=== PATIENT | female | born 1960 | race Caucasian/White ===

== ENCOUNTER 2022-09-23 14:48 | Emergency (ER) | payer MEDICARE, MEDICAID ==
[~2022-09-23] VITALS: Ht 163.8 cm; Wt 81.8 kg
[~2022-09-23 14:48] MED LIST: ALBU17AE26 PO; AMLO5TAB16 PO; APIX2.5T PO; ATOR20TA66 PO; DOCU-148 PO; DULO20CA18 PO; DULO60CA65 PO; FAMO40TA7 PO; HYDR-3965 PO; LEVO50TA8 PO; LOSA100T57 PO; NAPR-996 PO; POTA-207 PO; THEO300T46 PO; THEO400T PO; TRAM50TA2 PO
[2022-09-23] MEDS ORDERED: morphine 4 MG/ML inj SYRINge IM ONE (16:45)
[2022-09-23] MEDS ORDERED: oxyCODONE/APAP 10/325mg tablet PO ONE (16:45)
--- NOTE | 2022-09-23 23:00 | NUR ---
Pt to be discharged after speaking with case management about support at home and physical therapy. Pt lives alone and is having difficulty managing day to day activities. Pt to sleep here tonight and speak with case management in am for plan then discharge
--- NOTE | 2022-09-24 03:00 | NUR ---
Pt moved to hallway bed, report given
[2022-09-24 07:34] VITALS: BP 131/77
[2022-09-24] MEDS ORDERED: HYDROcodone/acetaminophen 5mg/325mg tablet PO ONE (07:40)
--- NOTE | 2022-09-24 08:37 | NUR ---
PT UP TO BATHROOM WITH WHEELCHAIR AND ONE PERSON STAND BY ASSIST. PT REPORTS AN INCREASE IN PAIN FROM A 02/08 TO 08/11. PT RESTING IN BED IN HALLWAY WITH NO DISTRESS OBSERVED.
--- NOTE | 2022-09-24 09:36 | NUR ---
SPOKE WITH CARI, GASTROENTEROLOGY NURSE. PER CARI SHE WILL FOLLOW UP WITH A PHOTOGRAPHS CURATOR TO FIND OUT IF INPATIENT REHABILITATION WILL BE AN OPTION. PER CARI PT WAS SENT HOME WITH HOME HEALTH FOR PT.
--- NOTE | 2022-09-24 12:41 | NUR ---
SPOKE WITH SISTER, RICARDA, PER PT IT IS OK TO GIVE HER AN UPDATE.
--- NOTE | 2022-09-24 12:55 | NUR ---
REPORT GIVEN TO RN ON CONTRERAS SIDE AT [facility].
--- NOTE | 2022-09-24 13:22 | NUR ---
PT GIVEN EXTRA FOOD TRAY.
== END 2022-09-24 14:11 | disposition home or self-care (01) ==
LOC: ER 14:49
DX: G89.18 Other acute postprocedural pain (principal); Z20.822 Contact with and (suspected) exposure to COVID-19; M25.561 Pain in right knee; J45.909 Unspecified asthma, uncomplicated; I50.9 Heart failure, unspecified
CPT/HCPCS: 87811; 96372; 99284; J2270

== ENCOUNTER 2022-11-09 21:18 | Inpatient (IN) | payer MEDICARE, MEDICAID ==
[~2022-11-09] VITALS: Ht 162.6 cm; Wt 79.5 kg
[~2022-11-09 21:18] MED LIST changes: -HYDR-3965 PO
[2022-11-09] MEDS ORDERED: nitroGLYCERIN-Tridil 50MG/D5W 250 ML IV PRN (21:25)
[2022-11-09] MEDS ORDERED: aspirin 81mg tab.chew PO ONE (21:25)
[2022-11-09] MEDS ORDERED: heparin 25,000 UNIT/250ml bag 250 ML IV PRN (21:25)
[2022-11-09] MEDS ORDERED: normal saline 1000ML IV soln IVB ONE (21:30)
--- NOTE | 2022-11-09 21:35 | NUR ---
pt was given 824mg of ASA and Zofran 4 mg prior to arrivail
[2022-11-09 21:37] LABS: BASOPHILS # (AUTO) 0.1 X10'3 (0-0.2); EOSINOPHILS # (AUTO) 0.2 X10'3 (0-0.9); HEMOGLOBIN 12.7 g/dl (12.0-16.0); NEUTROPHILS # (AUTO) 5.5 X10'3 (1.8-7.7); RED CELL DISTRIBUTION WIDTH 15.3 % (11.5-14.5)
[2022-11-09 21:38] LABS: BASOPHILS % (AUTO) 1.3 % (0-1); EOSINOPHILS % (AUTO) 2.2 % (0-6); LYMPHOCYTES # (AUTO) 2.8 X10'3 (1.1-4.8); LYMPHOCYTES % (AUTO) 30.4 % (21-51); MEAN CORPUSCULAR HEMOGLOBIN 30.4 PG (27.0-31.0); MEAN CORPUSCULAR HGB CONC 33.6 g/dL (33.0-36.5); MEAN CORPUSCULAR VOLUME 90.7 FL (78-98); MEAN PLATELET VOLUME 8.3 FL (7.4-10.4); MONOCYTES # (AUTO) 0.7 X10'3 (0-0.9); MONOCYTES % (AUTO) 7.3 % (2-12); NEUTROPHILS % (AUTO) 58.8 % (42-75); PLATELET COUNT 287 X10'3 (140-440); RED BLOOD COUNT 4.19 X10'6 (4.20-5.60); WHITE BLOOD COUNT 9.3 X10'3 (4.5-11.0)
[2022-11-09] MEDS ORDERED: fentaNYL/PF 50MCG/1 ML 2ML syringe ONE (21:39)
[2022-11-09] MEDS ORDERED: heparin 1,000unit/ml 10ml vial 10 ML ONE (21:39)
[2022-11-09] MEDS ORDERED: iohexol 350MG/ML 100ml bottle IV ONE (21:39)
[2022-11-09] MEDS ORDERED: midazolam 1 mg/ML 2ml injection ONE (21:39)
[2022-11-09] MEDS ORDERED: LIDOcaine 1% 30ml preserv. free vial ONE (21:39)
--- NOTE | 2022-11-09 21:43 | NUR ---
HEPRIN GTT STARTED AT 1000 UNITS PER HR AND 4000UNIT GIVEN, CHECK AND STARTED WITH DAVIS ROSEN VIA RIGHT AC 18G.
[2022-11-09] MEDS ORDERED: heparin 10,000 units/1 ML INJ IV ONE (21:45)
--- NOTE | 2022-11-09 21:45 | NUR ---
PT GROINS SHAVED
[2022-11-09 21:50] LABS: APTT 26 SECONDS (22-32)
[2022-11-09 22:03] LABS: ALANINE AMINOTRANSFERASE 15 U/L (12-78); ALBUMIN 3.5 G/DL (3.4-5.0); ALKALINE PHOSPHATASE 113 IU/L (46-116); ANION GAP 13 (8-16); ASPARTATE AMINO TRANSFERASE 24 U/L (10-37); BILIRUBIN,TOTAL 0.4 MG/DL (0.1-1.0); BLOOD UREA NITROGEN 19 MG/DL (7-18); BUN/CREATININE RATIO 13.1 (6.6-38.0); CALCIUM 9.7 MG/DL (8.5-10.1); CHLORIDE 101 MMOL/L (99-107); CREATININE 1.45 MG/DL (0.40-0.90); GLUCOSE 153 MG/DL (70-104); MAGNESIUM 1.9 MG/DL (1.5-2.4); SODIUM 137 MMOL/L (135-145); TOTAL CARBON DIOXIDE 22.9 MMOL/L (24-32); eGFR 36 ML/MIN
[2022-11-09 22:09] LABS: POTASSIUM 2.3 MMOL/L (3.5-5.1)
[2022-11-09] MEDS ORDERED: potassium Cl 20mEq/100mL bag 100 ML IV ONE (22:12)
--- NOTE | 2022-11-09 22:13 | NUR ---
2152 PT TRANSPORTED TO MEDICAL OFFICE ASSISTANT VIA BED ON MONITOR WITH PAD ATTACHED.
[2022-11-09] MEDS ORDERED: heparin 10,000 units/1 ML INJ IV PRN (22:15)
[2022-11-09] MEDS ORDERED: potassium Cl 20 mEq SR tablet PO ONE (22:15)
[2022-11-09] MEDS ORDERED: ticagrelor 90mg tablet ONE (22:36)
[2022-11-09] MEDS ORDERED: potassium Cl 20 mEq SR tablet PO PRN (22:50)
[2022-11-09] MEDS ORDERED: magnesium Cl slow-release 64mg tablet PO PRN (22:50)
[2022-11-09] MEDS ORDERED: potassium Cl 40MEQ/1/2NS 520ml 520 ML IV PRN (22:50)
[2022-11-09] MEDS ORDERED: magnesium 4gm in 100ml NS 100 ML IV PRN (22:50)
--- NOTE | 2022-11-09 23:00 | NUR ---
Patient in room PCU 3013. I have received report from EMIGDIO CANNON [employer] and had the opportunity to ask questions and assume patient care.
[2022-11-09 23:50] VITALS: BP 113/56
[2022-11-09] MEDS ORDERED: acetaminophen 325mg tablet PO PRN (23:50)
[2022-11-09] MEDS ORDERED: ondansetron/PF 4mg/2ml inj IV PRN (23:50)
[2022-11-09] MEDS ORDERED: proCHLORperazine 10 MG/2 ml inj IV PRN (23:50)
[2022-11-09] MEDS ORDERED: albuterol 2.5 MG/3 ML nebule NEB PRN (23:55)
[2022-11-10] VITALS (11 sets, daily range): BP systolic 94–132; BP diastolic 44–75
[2022-11-10] MEDS: traMADol 50MG tablet PO PRN ×3 (00:33→19:43)
[2022-11-10] MEDS: levoTHYROXINE 25mcg tablet PO SCH (07:00)
[2022-11-10 07:19] LABS: BASOPHILS # (AUTO) 0.1 X10'3 (0-0.2); EOSINOPHILS % (AUTO) 0.4 % (0-6); HEMATOCRIT 37.2 % (35.0-45.0); HEMOGLOBIN 12.4 g/dl (12.0-16.0); LYMPHOCYTES % (AUTO) 21.4 % (21-51); MEAN CORPUSCULAR HEMOGLOBIN 29.9 PG (27.0-31.0); MEAN CORPUSCULAR HGB CONC 33.3 g/dL (33.0-36.5); MEAN CORPUSCULAR VOLUME 89.9 FL (78-98); MEAN PLATELET VOLUME 8.6 FL (7.4-10.4); MONOCYTES # (AUTO) 0.8 X10'3 (0-0.9); MONOCYTES % (AUTO) 8.3 % (2-12); NEUTROPHILS # (AUTO) 6.4 X10'3 (1.8-7.7); NEUTROPHILS % (AUTO) 68.9 % (42-75); PLATELET COUNT 270 X10'3 (140-440); RED BLOOD COUNT 4.14 X10'6 (4.20-5.60); RED CELL DISTRIBUTION WIDTH 15.2 % (11.5-14.5); WHITE BLOOD COUNT 9.2 X10'3 (4.5-11.0)
[2022-11-10] MEDS: K and/or MAG REPLACEMENT MC SCH ×2 (08:00→20:00)
[2022-11-10] MEDS: metoprolol tartrate 50mg tablet PO SCH ×2 (08:00→20:00)
[2022-11-10] MEDS: ticagrelor 90mg tablet PO SCH (09:11)
[2022-11-10] MEDS: duloxetine 30mg CAPSULE.DR PO SCH (09:12)
[2022-11-10] MEDS: duloxetine 20mg capsule.DR PO SCH (09:12)
[2022-11-10] MEDS: atorvastatin 20mg tablet PO SCH (09:13)
[2022-11-10] MEDS: losartan 50mg tablet PO SCH (09:13)
[2022-11-10] MEDS: amLODIPine 5mg tablet PO SCH (09:13)
[2022-11-10] MEDS: potassium Cl 20 mEq SR tablet PO PRN ×3 (10:43→17:22)
[2022-11-10] MEDS ORDERED: famotidine 20mg tablet PO SCH (21:00)
[2022-11-10] MEDS ORDERED: THEOPHYLLINE ANHYDROUS PO SCH (21:00)
[2022-11-11] MEDS: ticagrelor 90mg tablet PO SCH ×3 (00:24→20:59)
[2022-11-11 02:47] VITALS: BP 139/70
[2022-11-11 06:44] LABS: MAGNESIUM 1.9 MG/DL (1.5-2.4); POTASSIUM 3.6 MMOL/L (3.5-5.1)
[2022-11-11 07:00] VITALS: BP 129/63
[2022-11-11] MEDS: K and/or MAG REPLACEMENT MC SCH ×2 (08:00→20:00)
--- NOTE | 2022-11-11 08:10 | NUR ---
PAGED ECHO: "NEW ECHO ORDER FOR PT IN 3013B. THNKS".
[2022-11-11] MEDS: metoprolol tartrate 50mg tablet PO SCH ×2 (08:19→20:00)
[2022-11-11] MEDS: levoTHYROXINE 25mcg tablet PO SCH (08:19)
[2022-11-11] MEDS: duloxetine 30mg CAPSULE.DR PO SCH (08:20)
[2022-11-11] MEDS: duloxetine 20mg capsule.DR PO SCH (08:20)
[2022-11-11] MEDS: atorvastatin 20mg tablet PO SCH (08:21)
[2022-11-11] MEDS: amLODIPine 5mg tablet PO SCH (08:21)
[2022-11-11] MEDS: losartan 50mg tablet PO SCH (08:21)
--- NOTE | 2022-11-11 10:09 | NUR ---
2-ND PAGE. ECHO PENDING FOR DISCHARGE. PLEASE ADVICE WHAT TIME CAN BE DONE SO PT CAN GO HOME. AICHA
[2022-11-11] MEDS ORDERED: TICA90TA PO (10:54)
[2022-11-11] MEDS ORDERED: ASPI-1265 PO (10:54)
[2022-11-11] MEDS ORDERED: ATOR40TA PO (10:54)
--- NOTE | 2022-11-11 11:02 | NUR ---
PT'S DAUGHTER OSEI CALLED AND VOICED THAT SHE WANTS TO TALK TO DR. SPOKE WITH DR. GUIDO REGARDING OSEI'S REQUEST AND GAVE HIM HER PHONE NUMBER.
--- NOTE | 2022-11-11 11:16 | NUR ---
"PT SELENAAL FOR PT ERIK, ROOM 3013B, [facility], PENDING DISCHARGE VS REHAB/SNF. THANKS"
[2022-11-11] MEDS: traMADol 50MG tablet PO PRN (12:36)
[2022-11-11 14:00] VITALS: BP 89/38
[2022-11-11 17:30] VITALS: BP 95/55
[2022-11-12 06:00] VITALS: BP 134/77
[2022-11-12 07:03] LABS: MAGNESIUM 1.9 MG/DL (1.5-2.4)
[2022-11-12] MEDS: metoprolol tartrate 50mg tablet PO SCH (07:43)
[2022-11-12] MEDS: losartan 50mg tablet PO SCH (07:43)
[2022-11-12] MEDS: levoTHYROXINE 25mcg tablet PO SCH (07:43)
[2022-11-12] MEDS: atorvastatin 20mg tablet PO SCH (07:43)
[2022-11-12] MEDS: duloxetine 30mg CAPSULE.DR PO SCH (07:43)
[2022-11-12] MEDS: duloxetine 20mg capsule.DR PO SCH (07:44)
[2022-11-12] MEDS: ticagrelor 90mg tablet PO SCH (07:44)
[2022-11-12] MEDS: traMADol 50MG tablet PO PRN (07:44)
[2022-11-12] MEDS: amLODIPine 5mg tablet PO SCH (07:44)
[2022-11-12] MEDS: K and/or MAG REPLACEMENT MC SCH (08:00)
[2022-11-12] MEDS ORDERED: pneumococcal 23-VAL P-sac vacc 25 mcg/0.5ml vial IMVAC ONE (10:00)
[2022-11-12] MEDS ORDERED: aspirin 81mg, enteric-coated 1 TAB TABLET.DR PO SCH (10:10)
[2022-11-12 11:00] VITALS: BP_SYST 87; BP_SYST 88; BP_SYST 96; BP_DIAS 45; BP_DIAS 51
[2022-11-12 11:43] LABS: ANION GAP 9 (8-16); BLOOD UREA NITROGEN 16 MG/DL (7-18); BUN/CREATININE RATIO 17.4 (6.6-38.0); CHLORIDE 105 MMOL/L (99-107); CREATININE 0.92 MG/DL (0.40-0.90); GLUCOSE 109 MG/DL (70-104); POTASSIUM 3.1 MMOL/L (3.5-5.1); SODIUM 139 MMOL/L (135-145); TOTAL CARBON DIOXIDE 25.5 MMOL/L (24-32); eGFR 61 ML/MIN
[2022-11-12 11:45] LABS: CALCIUM 9.5 MG/DL (8.5-10.1); MAGNESIUM 1.9 MG/DL (1.5-2.4)
[2022-11-12 11:46] LABS: ALBUMIN 3.2 G/DL (3.4-5.0); CHOL/HDL RATIO 2.2 (0.00-4.99); CHOLESTEROL 145 MG/DL (0-200); HDL CHOLESTEROL 65 MG/DL (35-60); LDL CHOLESTEROL 62 MG/DL (50-100); TRIGLYCERIDES 85 MG/DL (20-135)
--- NOTE | 2022-11-12 11:49 | NUR ---
Paged Shannon Jane, [employer] [id number]. orthostatics - but soft BP and a little lev, asymptomatic. Thx
[2022-11-12 12:11] LABS: CHLORIDE 107 MMOL/L (99-107); POTASSIUM 3.8 MMOL/L (3.5-5.1); SODIUM 138 MMOL/L (135-145)
[2022-11-12 12:14] LABS: ALBUMIN 2.9 G/DL (3.4-5.0); ANION GAP 10 (8-16); BLOOD UREA NITROGEN 20 MG/DL (7-18); BUN/CREATININE RATIO 23.5 (6.6-38.0); CALCIUM 9.2 MG/DL (8.5-10.1); CREATININE 0.85 MG/DL (0.40-0.90); GLUCOSE 94 MG/DL (70-104); TOTAL CARBON DIOXIDE 21.4 MMOL/L (24-32); eGFR 67 ML/MIN
--- NOTE | 2022-11-12 14:28 | NUR ---
Called report to [facility], spoke with Yarely. All questions, comments, and concerns were answered at this time. Rev'd D/C with patient - patient verbalized understanding. PIV x 2 were removed and pt tolerated well. Tele removed and returned to telegraph messenger monitor. Pt was picked up by [employer] in w/c and taken out to their van by their personell. All personal belongings sent with patient.
== END 2022-11-12 14:17 | DRG 246 ==
LOC: ER 21:18 → PCU 3S 22:30
PROVIDERS: ADMIT Internal Medicine Interventional Cardiology; ATTEND Internal Medicine Interventional Cardiology
PROC: 4A023N7 Measurement of Cardiac Sampling and Pressure, Left Heart, Percutaneous Approach (ICD-10-PCS; principal; 2022-11-09)
PROC: 027035Z Dilation of Coronary Artery, One Artery with Two Drug-eluting Intraluminal Devices, Percutaneous Approach (ICD-10-PCS; 2022-11-09)
PROC: B2111ZZ Fluoroscopy of Multiple Coronary Arteries using Low Osmolar Contrast (ICD-10-PCS; 2022-11-09)
PROC: B41F1ZZ Fluoroscopy of Right Lower Extremity Arteries using Low Osmolar Contrast (ICD-10-PCS; 2022-11-09)
DX: I21.19 ST elevation (STEMI) myocardial infarction involving other coronary artery of inferior wall (principal); I50.33 Acute on chronic diastolic (congestive) heart failure; N17.9 Acute kidney failure, unspecified; E78.00 Pure hypercholesterolemia, unspecified; Z20.822 Contact with and (suspected) exposure to COVID-19; E03.9 Hypothyroidism, unspecified; I11.9 Hypertensive heart disease without heart failure; F32.9 Major depressive disorder, single episode, unspecified; E87.6 Hypokalemia; I25.10 Atherosclerotic heart disease of native coronary artery without angina pectoris; J44.9 Chronic obstructive pulmonary disease, unspecified; F17.200 Nicotine dependence, unspecified, uncomplicated; Z82.49 Family history of ischemic heart disease and other diseases of the circulatory system; Z95.1 Presence of aortocoronary bypass graft; Z71.6 Tobacco abuse counseling; Z79.890 Hormone replacement therapy; I95.9 Hypotension, unspecified
CPT/HCPCS: 93306; 93454; 96361; 96374; 99285; C9600; 36415; 71045; 80048; 80053; 80061; 83735; 83880; 84132; 84443; 84484; 85025; 85610; 85730; 87081; 87811; 93005; 99152; 99153; A6258; C1725; C1751; C1760; C1769; C1874; C1894; G0378; J1644; J2250; J2405; J3010; J3480; J3490; J7030; Q9967